=== PATIENT | male | born 2000 | race Hispanic/Latino ===

== ENCOUNTER 2019-02-04 16:18 | Emergency (ER) | payer OTHER, SELFPAY ==
[2019-02-04 16:34] VITALS: BP 107/68; PULSE 65; RESP 18; TEMP 36.3; O2SAT 100; BMI 23.4
--- NOTE | 2019-02-04 17:00 | DI.RAD.S_ITS ---
PROCEDURE: XR CHEST 2V INDICATIONS: s/p electric shock, c/o chest pain TECHNIQUE: 2 views of the chest were acquired. COMPARISON: None. FINDINGS: Surgical changes and devices: None. Lungs and pleura: Lungs are clear. No pleural effusions or pneumothorax. Mediastinum: Mediastinal contours are normal. Heart size is normal. Bones and chest wall: No suspicious bony abnormalities. Soft tissues appear unremarkable. IMPRESSION: Negative chest. No acute cardiopulmonary process is evident. Dictated by: Rei Vzaquez M.D. on 02/04/2019 at 16:50 Approved by: Rei Vazquez M.D. on 02/04/2019 at 16:53
--- NOTE | 2019-02-04 17:18 | CM.SWNOTE ---
ED Social Work Note ED production grader asked this [employer] to meet with pt to assess for resource needs. Pt recently moved here from [place], he presents today in the ED after having received a strong electrical shock on the job. [employer] offered to assist with any resource or support needs, which he declines at this time. [employer] encouraged him to request social work should he change his mind.
[2019-02-04] MEDS: SODIUM CHLORIDE 0.9% 1,000 ML 1000 ML IV ×2 (17:24→19:08)
[2019-02-04 17:44] LABS: Add Manual Diff / Slide Review NO; Basophils Absolute Auto 0 /uL (0-100); Basophils Percent Auto 0.5 % (0-2); Eosinophils Absolute Auto 100 /uL (0-450); Eosinophils Percent Auto 1.4 % (2-4); Hematocrit 42.7 % (41-53); Hemoglobin 14.9 g/dL (13.5-17.5); Lymphocytes Absolute Auto 1400 /uL (1100-4500); Lymphocytes Percent Auto 16.8 % (25-40); Mean Corpuscular HGB Conc 34.9 % (30-36); Mean Corpuscular Hemoglobin 30.2 PG (26-34); Mean Corpuscular Volume 86.4 fL (80-100); Monocytes Absolute Auto 800 /uL (0-900); Monocytes Percent Auto 9.4 % (3-14); Neutrophils Absolute Auto 6100 /uL (1500-7000); Neutrophils Percent Auto 71.9 % (50-75); Platelet Count 207 X10^3/uL (150-400); Red Blood Cell Count 4.94 X10^6/uL (4.5-5.9); Red Cell Distribution Width 13.1 % (11.6-14.8); White Blood Cell Count 8.5 X10^3/uL (4.5-11.0)
[2019-02-04 17:51] LABS: BUN Creatinine Ratio 18.8 (6-22); Blood Urea Nitrogen 15 mg/dL (9-20); Calcium 10.1 mg/dL (8.4-10.2); Carbon Dioxide 25 mmol/L (22-32); Chloride 102 mmol/L (98-107); Creatine Kinase 584 U/L (55-170); Estimated Glomerular Filt Rate > 60.0 mL/min (>60); Glucose 80 mg/dL (70-100); HEMOLYSIS < 15 (0-50); Potassium 3.6 mmol/L (3.4-5.1); Sodium 141 mmol/L (137-145)
[2019-02-04 17:53] VITALS: BP 116/63; PULSE 73; RESP 10; O2SAT 100
[2019-02-04 18:03] LABS: Troponin I < 0.012 ng/mL (0.01-0.034)
--- NOTE | 2019-02-04 18:11 | ED_ITS ---
HPI - General Adult <ENEDINA Boggs - Last Filed: 02/05/19 00:36> General Chief complaint: Environmental Exposure Stated complaint: Electrical Shock / Panic Time Seen by Provider: 02/04/19 16:48 Source: patient Mode of arrival: Ambulatory Limitations: no limitations History of Present Illness HPI narrative: This is 18-year-old male, nonsmoker, who was brought in by [employer] paramedics after he had an electrical shock during work. Patient reports he was in a crawling space on his hands and knees and accidentally fell electric current started on right 4th finger and travelled to left hand and felt weird. Patient reports he was wearing cotton gloves at this time. Patient denies any entrance or exit skin wounds. Patient fell immediately some difficulty breathing and felt anxious. Patient reports intermittent chest discomfort after he arrived to ED and while talking to triage nurse. Patient reports did not lose consciousness, discomfort in joint or bones. According to the patient's boss, there was a standard electrical outlet nearby. Related Data Allergies Allergy/AdvReac Type Severity Reaction Status Date / Time No Known Drug Allergies Allergy Verified 02/04/19 16:34 Review of Systems <ENEDINA Boggs - Last Filed: 02/05/19 00:36> Review of Systems ROS Unobtainable: All systems reviewed & are unremarkable except as noted in HPI and below PFSH <ENEDINA Boggs - Last Filed: 02/05/19 00:36> Medical History Anxiety (Acute) Asthma (Acute) Surgical History No pertinent past surgical history (Acute) Social History Smoking Status: Never smoker Social History (Updated 02/04/19 @ 18:16 by ENEDINA Boggs) Smoking Status: Never smoker substance use type: marijuana Exam <ENEDINA Boggs - Last Filed: 02/05/19 00:36> Narrative Exam Narrative: GEN: Alert, oriented x 3, well appearing and nourished, and in no acute distress. Head: Normal cephalic, atraumatic. No scalp or temporal tenderness, palpable mass or rash. EYES: Pupils are equal, round, and reactive to light and accommodation. Extraocular muscles are intact bilaterally. There is no subconjunctival hemorrhage, exudate and sclera non-icteric. ENT: Bilateral auditory canals and tympanic membranes clear. Hearing grossly intact. Nose without bleeding, purulent discharge or deviation. Facial sinuses nontender to palpate. Mucous membrane moist, no mucosal lesion. Throat without erythema, tonsillar hypertrophy or exudate. Uvula in midline, airway patent. Neck: Trachea in midline. No JVD, non-tender without lymphadenopathy. No masses or thyroid megaly. Supple, non-tender and no meningeal signs. CARDIAC: Normal regular rate and rhythm without murmurs, gallops, or rubs. No chest wall tenderness. No peripheral edema, cyanosis or pallor. Capillary refill is less than 2 seconds. RESPIRATORY: Lungs are cleat to auscultate bilaterally. No cough, wheezes, rales, or rhonchi. No stridor, respiratory distress, increase work of breathing, or accessary muscle used. ABD: Abdomen soft, nontender and non-distended. No guarding or rebound tenderness to palpate. Bowel sounds are normal in all 4 quadrants. There is no palpable masses or organomegaly. EXT: Full painless ROM of all extremities with no loss of sensation, strength, effusion or edema. SKIN: Warm, dry, normal color for patient. No erythema, lesions or rash over visible areas. BACK: Nontender without deformity or crepitance. No flank tenderness. NEUROLOGICAL: Alert and oriented to place, time and person. Sensation and motor function intact bilaterally. No facial droops, dysphasia. PSYCHIATRIC: Good judgement and reason, without hallucinations, abnormal affect or abnormal behaviors during the examination. Initial Vital Signs Initial Vital Signs: Vital Signs Temperature 97.3 F L 02/04/19 16:34 Pulse Rate 65 02/04/19 16:34 Respiratory Rate 18 02/04/19 16:34 Blood Pressure 107/68 02/04/19 16:34 Pulse Oximetry 100 02/04/19 16:34 <Mode Odonnell DO - Last Filed: 02/12/19 00:08> Initial Vital Signs Initial Vital Signs: Vital Signs Temperature 97.3 F L 02/04/19 16:34 Pulse Rate 65 02/04/19 16:34 Respiratory Rate 18 02/04/19 16:34 Blood Pressure 107/68 02/04/19 16:34 Pulse Oximetry 100 02/04/19 16:34 Scores <HELENE BoggsP - Last Filed: 02/05/19 00:36> GCS [place] coma scale eye opening: Spontaneous [place] coma scale verbal response: Orientated Ricky coma scale motor response: Obey commands Ricky coma scale total score: 15 Nexus Score for C-Spine Focal Neurologic deficit present: No Midline spinal tenderness present: No Altered level of conciousness present: No Intoxication present: No Distracting Injury Present: No Nexus Criteria for C-spine: 0 Course <Tam Jose LEAD SLOT TECHNICIAN - Last Filed: 02/05/19 00:36> Orders Ordered: Discontinued Medications Sodium Chloride (Normal Saline 0.9%) 1,000 mls @ 1,000 mls/hr IV BOLUS ONE Stop: 02/04/19 17:59 Last Infusion: 02/04/19 18:36 Dose: 0 mls/hr Documented by: Admin: 02/04/19 17:24 Dose: 1,000 mls/hr [facility]ed [facility]: [facility] Sodium Chloride (Normal Saline 0.9%) 1,000 mls @ 1,000 mls/hr IV BOLUS ONE Stop: 02/04/19 20:04 Last Infusion: 02/04/19 20:20 Dose: 0 mls/hr Documented by: Admin: 02/04/19 19:08 Dose: 1,000 mls/hr Documented by: [facility] Vital Signs Vital signs: Vital Signs - 8 hr 02/04/19 16:34 02/04/19 17:53 02/04/19 18:56 Temperature 97.3 F L Pulse Rate 65 73 56 L Respiratory Rate 18 10 L 16 Blood Pressure 107/68 Blood Pressure [Left Arm] 116/63 132/65 Pulse Oximetry 100 100 100 02/04/19 19:47 02/04/19 21:16 Temperature 98.2 F Pulse Rate 71 54 L Respiratory Rate 16 18 Blood Pressure 132/66 Blood Pressure [Left Arm] 119/63 Pulse Oximetry 100 99 <Mode Odonnell DO - Last Filed: 02/12/19 00:08> Orders Ordered: Discontinued Medications Sodium Chloride (Normal Saline 0.9%) 1,000 mls @ 1,000 mls/hr IV BOLUS ONE Stop: 02/04/19 17:59 Last Infusion: 02/04/19 18:36 Dose: 0 mls/hr Documented by: Admin: 02/04/19 17:24 Dose: 1,000 mls/hr Documented by: MIGUEL Sodium Chloride (Normal Saline 0.9%) 1,000 mls @ 1,000 mls/hr IV BOLUS ONE Stop: 02/04/19 20:04 Last Infusion: 02/04/19 20:20 Dose: 0 mls/hr Documented by: Admin: 02/04/19 19:08 Dose: 1,000 mls/hr Documented by: MIGUEL Vital Signs Vital signs: Vital Signs - 8 hr 02/04/19 16:34 02/04/19 17:53 02/04/19 18:56 Temperature 97.3 F L Pulse Rate 65 73 56 L Respiratory Rate 18 10 L 16 Blood Pressure 107/68 Blood Pressure [Left Arm] 116/63 132/65 Pulse Oximetry 100 100 100 02/04/19 19:47 02/04/19 21:16 Temperature 98.2 F Pulse Rate 71 54 L Respiratory Rate 16 18 Blood Pressure 132/66 Blood Pressure [Left Arm] 119/63 Pulse Oximetry 100 99 Medical Decision Making <ENEDINA Boggs - Last Filed: 02/05/19 00:36> Differential Diagnosis Differential Diagnosis: Electrical shock, rhabdomyolysis, arrhythmia Medical Records Medical records reviewed: Yes I reviewed the patient's medical records. Lab Data Lab results reviewed: Yes I reviewed the patient's lab results. Result diagrams: 02/04/19 17:17 02/04/19 17:17 Labs: Lab Results 02/04/19 02/04/19 02/04/19 Range/Units 17:17 17:17 18:40 WBC 8.5 (4.5-11.0) X10^3/uL RBC 4.94 (4.5-5.9) X10^6/uL Hgb 14.9 (13.5-17.5) g/dL Hct 42.7 (41-53) % MCV 86.4 (80-100) fL MCH 30.2 (26-34) PG MCHC 34.9 (30-36) % RDW 13.1 (11.6-14.8) % Plt Count 207 (150-400) X10^3/uL Neut % (Auto) 71.9 (50-75) % Lymph % (Auto) 16.8 L (25-40) % [place] % (Auto) 9.4 (3-14) % Eos % (Auto) 1.4 L (2-4) % Baso % (Auto) 0.5 (0-2) % Neut # (Auto) 6100 (2929-5745) /uL Lymph # (Auto) 1400 (7273-6270) /uL [place] # (Auto) 800 (0-900) /uL Eos # (Auto) 100 (0-450) /uL Baso # (Auto) 0 (0-100) /uL Sodium 141 (137-145) mmol/L Potassium 3.6 (3.4-5.1) mmol/L Chloride 102 (98-107) mmol/L Carbon Dioxide 25 (22-32) mmol/L BUN 15 (9-20) mg/dL Creatinine 0.80 (0.66-1.25) mg/dL Estimated GFR > 60.0 (>60) mL/min BUN/Creatinine Ratio 18.8 (6-22) Glucose 80 (70-100) mg/dL Calcium 10.1 (8.4-10.2) mg/dL Total Creatine Kinase 584 H (55-170) U/L CK-MB (CK-2) 3.50 H (<2.37) ng/mL CK-MB (CK-2) Rel Index 0.6 L (1.5-5.0) % Troponin I < 0.012 (0.01-0.034) ng/mL Urine Color Yellow Urine Appearance Clear Urine pH 7.0 (4.5-8.0) Ur Specific [place] 1.010 (1.000-1.035) Urine Protein Negative (Negative) Urine Glucose (UA) Negative (Negative) g/dL Urine Ketones 2+ H (NEGATIVE) Urine Occult Blood Trace-lysed (Negative) Urine Nitrate Negative (Negative) Urine Bilirubin Negative (NEGATIVE) Urine Urobilinogen 0.2 (0.2) E.U./dL Ur Leukocyte Esterase Negative (NEGATIVE) Urine RBC None seen (0-5/HPF) Urine WBC None seen (0-5/HPF) Amorphous Sediment 2+ Urine Bacteria None seen (None) Ur Culture Indicated? Cult not indicated 02/04/19 Range/Units 20:15 WBC (4.5-11.0) X10^3/uL RBC (4.5-5.9) X10^6/uL Hgb (13.5-17.5) g/dL Hct (41-53) % MCV (80-100) fL MCH (26-34) PG MCHC (30-36) % RDW (11.6-14.8) % Plt Count (150-400) X10^3/uL Neut % (Auto) (50-75) % Lymph % (Auto) (25-40) % [place] % (Auto) (3-14) % Eos % (Auto) (2-4) % Baso % (Auto) (0-2) % Neut # (Auto) (7526-5314) /uL Lymph # (Auto) (9991-6315) /uL [place] # (Auto) (0-900) /uL Eos # (Auto) (0-450) /uL Baso # (Auto) (0-100) /uL Sodium (137-145) mmol/L Potassium (3.4-5.1) mmol/L Chloride (98-107) mmol/L Carbon Dioxide (22-32) mmol/L BUN (9-20) mg/dL Creatinine (0.66-1.25) mg/dL Estimated GFR (>60) mL/min BUN/Creatinine Ratio (6-22) Glucose (70-100) mg/dL Calcium (8.4-10.2) mg/dL Total Creatine Kinase 520 H (55-170) U/L CK-MB (CK-2) 2.75 H (<2.37) ng/mL CK-MB (CK-2) Rel Index 0.5 L (1.5-5.0) % Troponin I (0.01-0.034) ng/mL Urine Color Urine Appearance Urine pH (4.5-8.0) Ur Specific [place] (1.000-1.035) Urine Protein (Negative) Urine Glucose (UA) (Negative) g/dL Urine Ketones (NEGATIVE) Urine Occult Blood (Negative) Urine Nitrate (Negative) Urine Bilirubin (NEGATIVE) Urine Urobilinogen (0.2) E.U./dL Ur Leukocyte Esterase (NEGATIVE) Urine RBC (0-5/HPF) Urine WBC (0-5/HPF) Amorphous Sediment Urine Bacteria (None) Ur Culture Indicated? Urine Dip Bedside Urine Glucose Negative Bedside Urine Bilirubin - Negative Bedside Urine Ketone ++ 40 Urine Specific [place] 1.015 Bedside Urine Occult Blood - Negative Bedside Urine pH 7.0 Bedside Urine Protein +/- 15 Bedside Urine Urobilinogen - Negative Bedside Urine Nitrite - Negative Bedside Urine Leukocytes - Negative Esterase Point of care testing: Urine Dip Bedside Urine Glucose Negative Bedside Urine Bilirubin - Negative Bedside Urine Ketone ++ 40 Urine Specific [place] 1.015 Bedside Urine Occult Blood - Negative Bedside Urine pH 7.0 Bedside Urine Protein +/- 15 Bedside Urine Urobilinogen - Negative Bedside Urine Nitrite - Negative Bedside Urine Leukocytes - Negative Esterase Imaging Data Chest x-ray: Radiologist's impression: [address] [address] XRay Report Signed Patient: Yanna Huerta#: [id number] : 2000Acct:[id number] Age/Sex: 18 / MDate of Service: 02/04/19 Loc: ED Accession Number: [id number] Procedure: XR chest 2V Ordering Provider: Tam Jose PROCEDURE: XR CHEST 2V INDICATIONS: s/p electric shock, c/o chest pain TECHNIQUE: 2 views of the chest were acquired. COMPARISON: None. FINDINGS: Surgical changes and devices: None. Lungs and pleura: Lungs are clear. No pleural effusions or pneumothorax. Mediastinum: Mediastinal contours are normal. Heart size is normal. Bones and chest wall: No suspicious bony abnormalities. Soft tissues appear unremarkable. IMPRESSION: Negative chest. No acute cardiopulmonary process is evident. Dictated by: Rei Vazquez M.D. on 02/04/2019 at 16:50 Approved by: Rei Vazquez M.D. on 02/04/2019 at 16:53 ECG Data Attestation: I personally reviewed and interpreted this ECG as follows: Prior ECG tracings: not available for review Interpretation: Sinus rhythm rate at 60. Normal axis. No ST elevation or depression. RSR in V1/V2. MDM Narrative Medical decision making narrative: This is a 18-year-old male, who was brought in to ED by [employer] paramedics after he accidentally got electric shock when he was at work on a small crawling space on his palms and knees with water puddle. According to the patient's boss, there was a normal voltage of electrical outlet near by. Patient reports he was wearing a cotton glove and he felt electric current traveling from right 4th finger to the other side arm. Initially he had short of breath and short period of time he had chest pain which resolved all. Initial EKG was normal sinus rhythm rated 60s without ST elevation or depression. Initially chemistry showed elevated CK as 584 with CK-MB of 3.5 with negative troponin. Patient was hydrated with 2 L of IV fluid of normal saline. Second CK improved to 520 and CK-MB as 2.75. Chest x-ray showed no acute findings. Patient urinated without difficulty at least twice while in ED with reporting very diluted urine. Patient reports he was feeling his normal self at time of discharge without any complaints. Patient advised to increase hydration at home. Strict return precautions were discussed with the patient and patient advised to follow up with L&I provider or primary care physician in 2-3 days for a recheck. Patient verbalized the understanding and no further questions were expressed and agrees with treatment plan. <Mode Odonnell, DO - Last Filed: 02/12/19 00:08> Lab Data Labs: Lab Results 02/04/19 02/04/19 02/04/19 Range/Units 17:17 17:17 18:40 WBC 8.5 (4.5-11.0) X10^3/uL RBC 4.94 (4.5-5.9) X10^6/uL Hgb 14.9 (13.5-17.5) g/dL Hct 42.7 (41-53) % MCV 86.4 (80-100) fL MCH 30.2 (26-34) PG MCHC 34.9 (30-36) % RDW 13.1 (11.6-14.8) % Plt Count 207 (150-400) X10^3/uL Neut % (Auto) 71.9 (50-75) % Lymph % (Auto) 16.8 L (25-40) % [place] % (Auto) 9.4 (3-14) % Eos % (Auto) 1.4 L (2-4) % Baso % (Auto) 0.5 (0-2) % Neut # (Auto) 6100 (8038-0811) /uL Lymph # (Auto) 1400 (8945-0583) /uL [place] # (Auto) 800 (0-900) /uL Eos # (Auto) 100 (0-450) /uL Baso # (Auto) 0 (0-100) /uL Sodium 141 (137-145) mmol/L Potassium 3.6 (3.4-5.1) mmol/L Chloride 102 (98-107) mmol/L Carbon Dioxide 25 (22-32) mmol/L BUN 15 (9-20) mg/dL Creatinine 0.80 (0.66-1.25) mg/dL Estimated GFR > 60.0 (>60) mL/min BUN/Creatinine Ratio 18.8 (6-22) Glucose 80 (70-100) mg/dL Calcium 10.1 (8.4-10.2) mg/dL Total Creatine Kinase 584 H (55-170) U/L CK-MB (CK-2) 3.50 H (<2.37) ng/mL CK-MB (CK-2) Rel Index 0.6 L (1.5-5.0) % Troponin I < 0.012 (0.01-0.034) ng/mL Urine Color Yellow Urine Appearance Clear Urine pH 7.0 (4.5-8.0) Ur Specific [place] 1.010 (1.000-1.035) Urine Protein Negative (Negative) Urine Glucose (UA) Negative (Negative) g/dL Urine Ketones 2+ H (NEGATIVE) Urine Occult Blood Trace-lysed (Negative) Urine Nitrate Negative (Negative) Urine Bilirubin Negative (NEGATIVE) Urine Urobilinogen 0.2 (0.2) E.U./dL Ur Leukocyte Esterase Negative (NEGATIVE) Urine RBC None seen (0-5/HPF) Urine WBC None seen (0-5/HPF) Amorphous Sediment 2+ Urine Bacteria None seen (None) Ur Culture Indicated? Cult not indicated 02/04/19 Range/Units 20:15 WBC (4.5-11.0) X10^3/uL RBC (4.5-5.9) X10^6/uL Hgb (13.5-17.5) g/dL Hct (41-53) % MCV (80-100) fL MCH (26-34) PG MCHC (30-36) % RDW (11.6-14.8) % Plt Count (150-400) X10^3/uL Neut % (Auto) (50-75) % Lymph % (Auto) (25-40) % [place] % (Auto) (3-14) % Eos % (Auto) (2-4) % Baso % (Auto) (0-2) % Neut # (Auto) (4354-9245) /uL Lymph # (Auto) (9947-6818) /uL [place] # (Auto) (0-900) /uL Eos # (Auto) (0-450) /uL Baso # (Auto) (0-100) /uL Sodium (137-145) mmol/L Potassium (3.4-5.1) mmol/L Chloride (98-107) mmol/L Carbon Dioxide (22-32) mmol/L BUN (9-20) mg/dL Creatinine (0.66-1.25) mg/dL Estimated GFR (>60) mL/min BUN/Creatinine Ratio (6-22) Glucose (70-100) mg/dL Calcium (8.4-10.2) mg/dL Total Creatine Kinase 520 H (55-170) U/L CK-MB (CK-2) 2.75 H (<2.37) ng/mL CK-MB (CK-2) Rel Index 0.5 L (1.5-5.0) % Troponin I (0.01-0.034) ng/mL Urine Color Urine Appearance Urine pH (4.5-8.0) Ur Specific [place] (1.000-1.035) Urine Protein (Negative) Urine Glucose (UA) (Negative) g/dL Urine Ketones (NEGATIVE) Urine Occult Blood (Negative) Urine Nitrate (Negative) Urine Bilirubin (NEGATIVE) Urine Urobilinogen (0.2) E.U./dL Ur Leukocyte Esterase (NEGATIVE) Urine RBC (0-5/HPF) Urine WBC (0-5/HPF) Amorphous Sediment Urine Bacteria (None) Ur Culture Indicated? Urine Dip Bedside Urine Glucose Negative Bedside Urine Bilirubin - Negative Bedside Urine Ketone ++ 40 Urine Specific [place] 1.015 Bedside Urine Occult Blood - Negative Bedside Urine pH 7.0 Bedside Urine Protein +/- 15 Bedside Urine Urobilinogen - Negative Bedside Urine Nitrite - Negative Bedside Urine Leukocytes - Negative Esterase Point of care testing: Urine Dip Bedside Urine Glucose Negative Bedside Urine Bilirubin - Negative Bedside Urine Ketone ++ 40 Urine Specific [place] 1.015 Bedside Urine Occult Blood - Negative Bedside Urine pH 7.0 Bedside Urine Protein +/- 15 Bedside Urine Urobilinogen - Negative Bedside Urine Nitrite - Negative Bedside Urine Leukocytes - Negative Esterase Discharge Plan Departure Patient Disposition: Home Clinical Impression: Elevated CK Electric shock Qualifiers: Encounter type: initial encounter Qualified Code(s): T75.4XXA - Electrocution, initial encounter Discharge Date/Time: 02/04/19 21:20 Instructions: DI for Electric Shock Injuries Activity Restrictions/Additional Instructions: You have been diagnosed with [electric shock, elevated CK. You were hydrated with 2 L of normal saline while you're in ED. You're CK had improved to 520 from 584 and had urinated clear urine while in ED. Troponin was negative and EKG was normal]. What to do: *Take your medications as directed. No new medication to go home with. *Follow up with your primary care provider in 2-3 days, call for an appointment. If you do not have primary care physician please call your insurance company to set up PCP. Let them know you were seen in the ED and that we asked you to be seen in follow up. *Return to ED if you have any new, worsening, or concerning symptoms, such as [chest pain, breathing difficulty, feeling run down, dark color urine, muscle aches, unable to tolerate fluids or any acute concerns]. Referrals: [facility] [Outside] (For walk in clinic) [facility] [Outside] <Mode Odonnell DO - Last Filed: 02/12/19 00:08> Sign Out Provider Sign Out Attestation: I was available for consultation during this patient's emergency department encounter
[2019-02-04 18:29] LABS: CKMB % Relative Index 0.6 % (1.5-5.0)
[2019-02-04 18:56] VITALS: BP 132/65; PULSE 56; RESP 16; O2SAT 100
[2019-02-04 19:07] LABS: Bacteria Urine None Seen; RBC Urine None Seen (0-5/HPF); WBC Urine None Seen (0-5/HPF)
[2019-02-04 19:40] LABS: Appearance Urine UA CLEAR; Bilirubin Urine UA NEGATIVE (NEGATIVE); Color Urine UA YELLOW; Glucose Urine UA NEGATIVE (Negative); Ketones Urine UA 2+ (NEGATIVE); Leukocyte Esterase Urine UA NEGATIVE (NEGATIVE); Nitrite Urine UA NEGATIVE (Negative); Occult Blood Urine UA TRACE-LYSED (Negative); Protein Urine UA NEGATIVE (Negative); Urobilinogen Urine UA 0.2 E.U./dL (0.2)
[2019-02-04 19:47] VITALS: BP 119/63; PULSE 71; RESP 16; O2SAT 100
[2019-02-04 20:03] LABS: Amorphous Sediment Urine 2+; Culture Indicated Urine Cult Not Indicated
[2019-02-04 20:32] LABS: Creatine Kinase 520 U/L (55-170)
[2019-02-04 20:48] LABS: CKMB % Relative Index 0.5 % (1.5-5.0); Creatine Kinase MB 2.75 ng/mL (<2.37)
[2019-02-04 21:16] VITALS: BP 132/66; PULSE 54; RESP 18; TEMP 36.8; O2SAT 99
== END 2019-02-04 21:20 | disposition home or self-care (01) ==
PROVIDERS: Emergency Medicine; Emergency Provider Nurse Practitioner Family
DX: R74.8 Abnormal levels of other serum enzymes (principal); T75.4XXA Electrocution, initial encounter; Y99.0 Civilian activity done for income or pay
CPT/HCPCS: 36415; 71046; 80048; 81001; 81003; 82550; 82553; 84484; 85025; 93005; 93010; 96360; 96361; 99283; 99285